=== PATIENT | female | born 1975 | race Caucasian/White ===

== ENCOUNTER 2016-06-06 20:24 | Emergency (ER) | payer OTHER ==
[2016-06-06 21:30] LABS: BASOPHIL % 0.3 % (0-2); PLATELET COUNT 284 x10^3mcL (130-400); RED CELL DISTRIBUTION WIDTH 13.6 % (11.5-14.5)
[2016-06-06 21:32] LABS: CALCIUM 9.1 mg/dL (8.5-10.1); CARBON DIOXIDE 22.2 mmol/L (21-32); CHLORIDE SERUM 103 mmol/L (98-107); CREATININE SERUM 0.8 mg/dL (0.6-1.0); GFR1 > 60 mL/min; GLUCOSE SERUM 114 mg/dL (74-106); POTASSIUM SERUM 3.4 mmol/L (3.5-5.1); SODIUM SERUM 138 mmol/L (136-145)
[2016-06-06 21:35] LABS: UA SPECIFIC GRAVITY <=1.005 (1.005-1.035); microscopic required? YES; urine erythrocyte TRACE (NEGATIVE)
[2016-06-06 21:36] LABS: ALKALINE PHOSPHATASE 64 U/L (46-116); ALT/SGPT 17 U/L (14-59); AST/SGOT 16 U/L (15-37); BILIRUBIN TOTAL 0.7 mg/dL (0.20-1.00); TOTAL PROTEIN, SERUM 7.1 g/dL (6.4-8.2)
[2016-06-06 21:47] LABS: CK-MB < 0.5 ng/mL (0-3.6); CREATINE KINASE 36 U/L (26-192)
[2016-06-06 22:11] LABS: AMPHETAMINE QUAL UR NONE DETECTED (NEG <=1000)
[2016-06-06 23:25] LABS: TOTAL PROTEIN CSF 32 mg/dL (15-45)
[2016-06-06 23:26] LABS: APPEARANCE CSF CLEAR; COLOR CSF COLORLESS; RBC CSF 0 /cumm (0); WBC CSF 0 /cumm (0-5)
[2016-06-07 00:42] LABS: FREE T4 1.04 ng/dL (0.76-1.46)
[2016-06-07 01:39] VITALS: BP 124/77
== END 2016-06-07 01:39 | disposition home or self-care (01) ==
LOC: ED 20:24
PROVIDERS: Emergency Medicine
DX: R25.1 Tremor, unspecified (principal); M79.1 Myalgia; R10.9 Unspecified abdominal pain; M43.6 Torticollis
CPT/HCPCS: 80307; 84439; G0480; J1170; J2001; J2060; J7030; Q0092

== ENCOUNTER 2016-06-21 19:26 | Emergency (ER) | payer OTHER ==
[2016-06-22 01:11] VITALS: BP 138/89
== END 2016-06-22 01:11 | disposition left against medical advice (07) ==
LOC: ED 19:26
DX: Z53.21 Procedure and treatment not carried out due to patient leaving prior to being seen by health care provider (principal)